=== PATIENT | male | born 1935 | race Caucasian/White ===

== ENCOUNTER → 2017-05-14 | Outpatient (CLI) | payer MEDICARE | END | disposition home or self-care (01) | LOC: WOUND 08:44 | PROVIDERS: ATTEND Internal Medicine | DX: T23.291A Burn of second degree of multiple sites of right wrist and hand, initial encounter (principal); I25.10 Atherosclerotic heart disease of native coronary artery without angina pectoris; Z87.891 Personal history of nicotine dependence; X19.XXXA Contact with other heat and hot substances, initial encounter; Y93.89 Activity, other specified; Y92.89 Other specified places as the place of occurrence of the external cause; Y99.8 Other external cause status | CPT/HCPCS: G0463; WOU0463 ==

== ENCOUNTER → 2017-05-21 | Outpatient (CLI) | payer MEDICARE | END | disposition home or self-care (01) | LOC: WOUND 08:30 | PROVIDERS: ATTEND Internal Medicine | DX: T23.2 Burn of second degree of wrist and hand (principal); S61.401D Unspecified open wound of right hand, subsequent encounter; I25.10 Atherosclerotic heart disease of native coronary artery without angina pectoris; Z87.891 Personal history of nicotine dependence; X08.8XXD Exposure to other specified smoke, fire and flames, subsequent encounter | CPT/HCPCS: 97597 ==

== ENCOUNTER → 2017-05-28 | Outpatient (CLI) | payer MEDICARE | END | disposition home or self-care (01) | LOC: WOUND 08:56 | PROVIDERS: ATTEND Internal Medicine | DX: T23.2 Burn of second degree of wrist and hand (principal); I25.10 Atherosclerotic heart disease of native coronary artery without angina pectoris; Z87.891 Personal history of nicotine dependence; X08.8XXD Exposure to other specified smoke, fire and flames, subsequent encounter | CPT/HCPCS: G0463; WOU0463 ==

== ENCOUNTER → 2017-06-04 | Outpatient (CLI) | payer MEDICARE | END | disposition home or self-care (01) | LOC: WOUND 08:21 | PROVIDERS: ATTEND Internal Medicine | DX: T23.2 Burn of second degree of wrist and hand (principal); S61.401D Unspecified open wound of right hand, subsequent encounter; I25.10 Atherosclerotic heart disease of native coronary artery without angina pectoris; Z87.891 Personal history of nicotine dependence; X08.8XXD Exposure to other specified smoke, fire and flames, subsequent encounter | CPT/HCPCS: 97597; 97598 ==

== ENCOUNTER → 2017-06-11 | Outpatient (CLI) | payer MEDICARE | END | disposition home or self-care (01) | LOC: WOUND 08:47 | PROVIDERS: ATTEND Internal Medicine | DX: T23.2 Burn of second degree of wrist and hand (principal); S61.401D Unspecified open wound of right hand, subsequent encounter; I25.10 Atherosclerotic heart disease of native coronary artery without angina pectoris; Z87.891 Personal history of nicotine dependence; X08.8XXD Exposure to other specified smoke, fire and flames, subsequent encounter | CPT/HCPCS: 97597; 97598 ==

== ENCOUNTER → 2017-06-18 | Outpatient (CLI) | payer MEDICARE, OTHER | END | disposition home or self-care (01) | LOC: WOUND 09:00 | PROVIDERS: ATTEND Internal Medicine | DX: T23.2 Burn of second degree of wrist and hand (principal); S61.401D Unspecified open wound of right hand, subsequent encounter; I25.10 Atherosclerotic heart disease of native coronary artery without angina pectoris; Z87.891 Personal history of nicotine dependence; T31.0 Burns involving less than 10% of body surface; X08.8XXD Exposure to other specified smoke, fire and flames, subsequent encounter | CPT/HCPCS: 97597; 97598 ==

== ENCOUNTER → 2017-07-02 | Outpatient (CLI) | payer OTHER | END | disposition home or self-care (01) | LOC: WOUND 09:31 | PROVIDERS: ATTEND Internal Medicine | DX: T23.2 Burn of second degree of wrist and hand (principal); S61.401D Unspecified open wound of right hand, subsequent encounter; I25.10 Atherosclerotic heart disease of native coronary artery without angina pectoris; Z87.891 Personal history of nicotine dependence; T31.0 Burns involving less than 10% of body surface; X08.8XXD Exposure to other specified smoke, fire and flames, subsequent encounter | CPT/HCPCS: 97597; 97598 ==